=== PATIENT | male | born 1990 | race Caucasian/White ===

== ENCOUNTER 2017-03-02 07:40 | Emergency (ER) | payer OTHER ==
[2017-03-02] MEDS ORDERED: KETOROLAC TROMETHAMINE 30 MG/ML SOL ONE (08:43)
[2017-03-02] MEDS ORDERED: BACITRACIN 500 U/GM OIN TOP ONE (08:44)
[2017-03-02] MEDS: KETOROLAC TROMETHAMINE 30 MG/ML SOL IM ONE (08:47)
[2017-03-02] MEDS: BACITRACIN 500 U/GM OIN TOP ONE (08:49)
[2017-03-02 09:49] VITALS: TEMP 97.4; O2SAT 100
[2017-03-02 09:54] VITALS: BP 133/87; PULSE 67; RESP 14
== END 2017-03-02 09:05 | disposition home or self-care (01) | DRG 935 ==
LOC: ED 07:40
DX: T20.10XA Burn of first degree of head, face, and neck, unspecified site, initial encounter (principal); T54.3X1A Toxic effect of corrosive alkalis and alkali-like substances, accidental (unintentional), initial encounter; Z57.5 Occupational exposure to toxic agents in other industries; Y93.89 Activity, other specified; Y99.0 Civilian activity done for income or pay
CPT/HCPCS: 96372; 99284; 99285; J1885